=== PATIENT | male | born 1955 | race Caucasian/White ===

== ENCOUNTER 2017-09-19 15:23 | Inpatient (IN) ==
[2017-09-19] MEDS ORDERED: NS 1,000 ML IV ONE (15:36)
[2017-09-19] MEDS ORDERED: DiltiaZEM 25 MG/5 ML INJECTION IVP ONE (15:37)
[2017-09-19] MEDS: SALINE FLUSH 10ml SYRINGE IVF PRN (15:48)
--- NOTE | 2017-09-19 15:59 | Emergency Department Report ---
General Adult HPI - General Chief complaint: Arrhythmia/Palpitations Stated complaint: IRREGULAR HEART RATE Time Seen by Provider: 09/19/17 15:36 Source: patient Mode of arrival: ambulatory Limitations: no limitations - History of Present Illness HPI narrative: Pt is a 62 yo male who presents to ER with his . C/o increasing cough over the past week. Has bad allergies. Seen in critical access hospital care and sent here due to finding of a-fib with RVR. Had episode of CP end of July -felt like a "muscle thing" and "didn't last very long." Gets chest pains off and on and usually thinks it is r/t drinking too much pepsi as he drinks 8+ sodas a day. Has felt more congested in his chest. Has allergies that seem to have flared. No fever. Cough has become productive over the past few days. Currently has no chest pain. Shortness of breath seems to be related to the congestion in his chest. - Related Data Home Medications Medication Instructions Recorded Confirmed Amlodipine Besylate/Benazepril 1 cap PO DAILY 09/19/17 09/19/17 [Amlodipine-Benazepril 5-10 mg] Aspirin [Aspirin EC] 81 mg PO DAILY 09/19/17 09/19/17 Cetirizine HCl [Zyrtec] 10 mg PO DAILY 09/19/17 09/19/17 Montelukast [Singulair] 10 mg PO HS 09/19/17 09/19/17 Thyroid,Pork [Oyster Planter Thyroid] 30 mg PO DAILY 09/19/17 09/19/17 Allergies Allergy/AdvReac Type Severity Reaction Status Date / Time loratadine [From Claritin] Allergy Intermediate Rash Verified 09/19/17 15:55 Review of Systems All systems: reviewed and negative except as stated (coughing, chest congestion) [facility] Patient Stated Medical History Cardiac Arrhythmia Yes: [facility]LLATION [facility] Medical History (Last Updated 09/19/17 @ 14:31 by Hermelinda Jade) HTN (hypertension) (Chronic Medical) Thyroid disease (Chronic Medical) hypothryoidism allergies Surgical History: *None Family History: F-. emphysema, bladder cancer, colostomy M-. HTN, COPD, DM sister-A. fib - Social History Smoking status: Never smoker Substance use type: does not use Alcohol intake frequency: does not drink Social history: Lives in [place] and has a home here as well[place] in [place]. Spends most time in [place]. Physical Exam - Limitations Limitations: no limitations - General General appearance: in no apparent distress - Normal Exams: Head:: Normocephalic without trauma Eyes:: Pupils are PERRLA w/ EOMI Neck:: Full range of motion, without adenopathy Cardiovascular:: capillary refill Abdomen:: soft, non-tender, non-distended Integumentary:: No rashes Neurological:: Patient is alert, and oriented, exams w/o gross deficits Psychiatric:: Patient exhibits, appropriate attention - Respiratory Respiratory exam: Present: wheezes (diffuse- inspiratory and expiratory). Absent: normal lung sounds bilaterally, respiratory distress - Cardiovascular Cardiovascular exam: Present: tachycardia, irregular rhythm Course Vital Signs Temperature 98.9 F 09/19/17 15:25 Pulse Rate 127 H 09/19/17 15:25 Respiratory Rate 19 09/19/17 15:25 Blood Pressure 158/97 H 09/19/17 15:25 Pulse Oximetry 96 09/19/17 15:25 Temperature 98.9 F 09/19/17 15:25 Pulse Rate 98 09/19/17 17:00 Respiratory Rate 16 09/19/17 17:23 Blood Pressure 121/81 09/19/17 17:00 Pulse Oximetry 94 09/19/17 17:23 Medical Decision Making - [facility] Narrative Medical decision making narrative: Patient with new onset of atrial fibrillation, unknown time of onset. Labs and chest x-ray are all essentially normal. Rate was improved with 20 mg Cardizem, but was averaging one teens by end of ER visit. Suspect his wheezing is related to reactive airways related to allergies. Given Solu-Medrol 125 mg IV in the ER and DuoNeb treatment. Case discussed with Alla Huitron APRN with Dr. Hernandez. She will admit for observation with ADRIANA and possible cardioversion tomorrow. Patient admitted to CCU with further orders to be given per cardiology. - Lab Data Result diagrams: 09/19/17 15:39 09/19/17 15:39 Lab Results 09/19/17 09/19/17 Range/Units 15:39 15:39 WBC 4.7 (4.5-11.0) T/MM3 RBC 5.34 (4.50-5.90) M/MM3 Hgb 15.1 (13.5-17.5) GM/DL Hct 43.3 (41-53) % MCV 81.1 (80-100) UM3 MCH 28.3 (26-34) UUG MCHC 34.9 (31-37) GM/DL RDW Std Deviation 37.1 (36.9-50.2) FL Plt Count 233 (130-400) T/MM3 MPV 8.5 L (9.4-12.4) UM3 Immature Gran % (Auto) 0.2 (0.0-0.5) % Neut % (Auto) 36.7 (33-66) % Lymph % (Auto) 35.3 (23-45) % Barber % (Auto) 15.6 H (0-9.0) % Eos % (Auto) 11.6 H (0-4) % Baso % (Auto) 0.6 (0-2) % Neut # (Auto) 1.7 L (1.8-7.7) T/MM3 Lymph # (Auto) 1.7 (1-4.8) T/MM3 Barber # (Auto) 0.7 (0-0.8) T/MM3 Eos # (Auto) 0.6 H (0-0.5) T/MM3 Baso # (Auto) 0.0 (0-0.2) T/MM3 Abs Immat Gran (auto) 0.01 (0.00-0.03) T/MM3 Turbidity < 20 (0-20) Sodium 146 H (134-144) MEQ/L Potassium 3.8 (3.6-5) MEQ/L Chloride 107 (98-107) MEQ/L Carbon Dioxide 24 (22-30) MEQ/L Anion Gap 15 (5-15) meq/L BUN 17.0 (9-20) MG/DL Creatinine 1.0 (0.8-1.5) mg/dL GFR Calculation 75 BUN/Creatinine Ratio 17 (6-26) RATIO Glucose 110 (75-110) MG/DL Calculated Osmolality 284 H (261-280) MOSM/KG Calcium 9.7 (8.4-10.2) MG/DL Total Bilirubin 0.50 (0.20-1.30) MG/DL Icterus Index < 2 (0-7) AST 21 (17-59) U/L ALT 28 (1-50) U/L Alkaline Phosphatase 86 (38-126) U/L Troponin I < 0.012 (0-0.12) ng/ml NT-Pro-B Natriuret Pep 70.7 (0-175) pg/mL Total Protein 8.1 (6.3-8.2) g/dL Albumin 4.6 (3.5-5.0) g/dL Globulin 3.5 (2.4-3.6) G/DL Albumin/Globulin Ratio 1.3 (1.1-2.2) RATIO Specimen Hemolysis < 15 (0-25) Disposition Clinical Impression: Atrial fibrillation with RVR, Wheezing without diagnosis of asthma Disposition: 02 To [facility] Acute Care Condition: Stable Prescriptions: Continue Cetirizine HCl [Zyrtec] 10 mg PO DAILY Thyroid,Pork [Oyster Planter Thyroid] 30 mg PO DAILY Amlodipine Besylate/Benazepril [Amlodipine-Benazepril 5-10 mg] 1 cap PO DAILY Aspirin [Aspirin EC] 81 mg PO DAILY Montelukast [Singulair] 10 mg PO HS Time of Disposition: 17:40 - Seen By: linolevel
--- NOTE | 2017-09-19 16:38 | XRay Report ---
INDICATION: soa PROCEDURE: CHEST 2-VIEWS UPRIGHT (PA & LAT) Encounter: Initial COMPARISON: None FINDINGS: The lungs are clear without evidence of focal abnormal airspace opacity. There is no pleural effusion or pneumothorax. The heart size, mediastinal contours and pulmonary vascularity are within normal limits. Mild degenerative change in the spine. IMPRESSION: No acute cardiopulmonary disease. .
[2017-09-19] MEDS ORDERED: ALBUTEROL/IPRATROPIUM 2.5mg-0.5mg/3ml NEB AEROSOL ONE (17:05)
[2017-09-19] MEDS ORDERED: METHYLPREDNISOLONE SOD SUCC 125mg/2ml INJECTION IVP ONE (17:40)
[2017-09-19] MEDS ORDERED: ENOXAPARIN 100 MG/ML INJECTION SQ ONE (19:00)
[2017-09-19] MEDS: DiltiaZEM Drip 125 MG in NS 125 ML IV SCH (19:05)
[2017-09-19 19:32] VITALS: BMI 34.2
[2017-09-20] MEDS ORDERED: SOTALOL 80 MG TABLET PO SCH (08:00)
[2017-09-20] MEDS ORDERED: APIXABAN 5 MG TABLET PO SCH (10:47)
[2017-09-20] MEDS ORDERED: ASPIRIN *EC* 81 MG TABLET PO SCH (11:00)
[2017-09-20] MEDS: CETIRIZINE 10 MG TABLET PO SCH (12:30)
[2017-09-20] MEDS ORDERED: FLECAINIDE 100 MG TABLET PO ONE (13:36)
[2017-09-20] MEDS: AMLODIPINE/BENAZEPRIL 5mg/10mg CAPSULE PO SCH (13:57)
--- NOTE | 2017-09-20 14:29 | Cardiology History & Physical ---
History of Present Illness Chief complaint: cough HPI: Roby is a 62 year old male with a history of allergies was evaluated in the ED for new onset of atrial fibrillation, unknown time of onset. Rate was improved with 20 mg Cardizem, also given Solu-Medrol 125 mg IV in the ER and DuoNeb treatment. Case was discussed with me and he was admitted to Dr. Hogan for observation and possible cardioversion. He converted while on Cardizem drip in the CCU. Review of Systems - Constitutional Constitutional: Absent: chills, fatigue, fever(s) - EENMT Eyes: Absent: change in vision Balance: Absent: vertigo Mouth/Throat: Absent: sore throat - Cardiovascular Cardiovascular: Absent: chest pain, palpitations, syncope, dyspnea on exertion, orthopnea, edema, heart murmur Rhythm: Absent: abnormal rhythm Vascular: Absent: pedal edema - Respiratory Respiratory: Present: cough, wheezing. Absent: dyspnea on exertion - Gastrointestinal Gastrointestinal: Absent: abdominal pain, constipation, diarrhea, nausea, vomiting - Genitourinary Genitourinary: Absent: dysuria - Integumentary/Breasts Integumentary: Absent: rash - Neurological Neurological: Absent: dizziness - Endocrine Endocrine: Absent: palpitations [facility] Medical History (Last Updated 09/19/17 @ 14:31 by Hermelinda Jade) HTN (hypertension) (Chronic Medical) Thyroid disease (Chronic Medical) Surgical History: *None Family History: Mother - AFib, HTN, COPD, DM Father -. emphysema, bladder cancer, colostomy Sister - AFib - Social History Smoking status: Never smoker Substance use type: does not use Alcohol intake frequency: does not drink Medications Home Medications Medication Instructions Recorded Confirmed Type Amlodipine Besylate/Benazepril 1 cap PO DAILY 09/19/17 09/19/17 History [Amlodipine-Benazepril 5-10 mg] Aspirin [Aspirin EC] 81 mg PO DAILY 09/19/17 09/19/17 History Cetirizine HCl [Zyrtec] 10 mg PO DAILY 09/19/17 09/19/17 History Montelukast [Singulair] 10 mg PO HS 09/19/17 09/19/17 History Thyroid,Pork [Pulp Grinder Thyroid] 30 mg PO DAILY 09/19/17 09/19/17 History Amlodipine/Benazepril 5/10 [Lotrel] 1 cap PO DAILY cap 09/21/17 Rx Aspirin *EC* [Ecotrin] 81 mg PO DAILY tab 09/21/17 Rx Benzonatate [Tessalon Perles] 100 mg PO TID PRN #30 cap 09/21/17 Rx Cetirizine [Zyrtec] 10 mg PO DAILY tab 09/21/17 Rx Flecainide [Tambocor] 50 mg PO BID #60 tab 09/21/17 Rx Guaifenesin LA [Mucinex LA] 1,200 mg PO BID tab 09/21/17 Rx THYROID 30mg [[place] Thyroid] 30 mg PO DAILY tab 09/21/17 Rx Allergies Allergy/AdvReac Type Severity Reaction Status Date / Time loratadine [From Claritin] Allergy Intermediate Rash Verified 09/19/17 15:55 Exam Vital signs: Temperature 98.4 F 09/20/17 04:00 Pulse Rate 68 09/20/17 07:00 Respiratory Rate 26 H 09/20/17 07:00 Blood Pressure 134/81 09/20/17 07:00 Pulse Oximetry 97 09/20/17 07:00 - Constitutional no acute distress, well nourished, cooperative - Routine HEENT Exam Head: Present: normocephalic ENT: Present: mucous membranes moist - Routine Neck Exam Absent: JVD, carotid bruit - Routine Chest/Breast/Axilla Exam Chest wall: Absent: tenderness - Routine Respiratory Exam Present: CTA bilaterally. Absent: dyspnea, rales, wheezes - Routine Cardiovascular Exam Present: RRR, no murmur - Routine Abdominal Exam Present: soft, non tender - Routine Extremities Exam Present: no edema - Routine Skin Exam Present: intact, dry, warm - Routine Neurological Exam Present: alert, oriented X3 - Routine Psychiatric Exam Present: normal affect, normal thought process Results 09/21/17 04:15 09/21/17 04:15 - Imaging and Cardiology Imaging & Cardiology Narrative: Date of Exam: 09/19/17 Ordering Provider: Kay Graves Type of Exam(s): XR chest 2V Reason for Exam(s): soa INDICATION: soa PROCEDURE: CHEST 2-VIEWS UPRIGHT (PA & LAT) Encounter: Initial COMPARISON: None FINDINGS: The lungs are clear without evidence of focal abnormal airspace opacity. There is no pleural effusion or pneumothorax. The heart size, mediastinal contours and pulmonary vascularity are within normal limits. Mild degenerative change in the spine. IMPRESSION: No acute cardiopulmonary disease. 09/20/17 16:36 09/20/17 16:36 Date of Exam: 09/20/17 Type of Exam(s): US echo doppler complete DATE OF PROCEDURE September 20, 2017 This is a two-dimensional echo with spectral Doppler, color-flow and M-mode. It was obtained in a patient with atrial fibrillation. Left atrium is dilated. Left ventricle end-diastolic dimension is normal. Left ventricle wall thickness increased. LV systolic function is normal with ejection fraction of 63%. Right atrium is normal. Right ventricle is normal. Aortic root dimension is normal. Mitral valve annulus is calcified. Mitral valve leaflets are normal with mild mitral regurgitation. Aortic valve shows fibrocalcific changes with no stenosis or insufficiency. Tricuspid valve shows mild tricuspid regurgitation with mild pulmonary hypertension with estimated pulmonary artery systolic pressure of 41. Pulmonary valve shows mild pulmonary insufficiency. There is no pericardial effusion. IMPRESSION 1. Normal LV systolic function with ejection fraction of 63%. 2. Left atrial dilation. 3. Left ventricular hypertrophy. 4. Mitral annulus calcification with mild mitral regurgitation. 5. Aortic sclerosis. 6. Mild tricuspid regurgitation with mild pulmonary hypertension with estimated pulmonary artery systolic pressure of 41. 7. Mild pulmonary insufficiency. EKG interpretations - EKG EKG results cardiology: sinus rhythm - Blocks, axis, hypertrophy, ST abn AV and intraventricular conduction: right bundle branch block (fixed/ intermittent, complete/incomplete) (incomplete) Hospital Course This is a general summary of the patient's hospital course. For more details refer to the complete medical record. Time spent with patient: 25 - 35 minutes Resuscitation Status: Full Code Assessment and Plan - Attestation Attestation Narrative: 10/01/17 13:25 Recommendation After examining the patient I agree with the above assessment. I am involved in the formulation of the patient's plan of care. - Assessment and Plan (1) Atrial fibrillation with RVR Status: Acute New, unknown onset. Patient was not symptomatic, other than cough - denies chest pain - EKG shows A Fib RVR - Started Cardizem drip for rate control. self converted. - Lovenox 1mg/kg SQ given - Check TSH and Mag - Start Flecainide 100mg X1 then 50mg BID for antiarrhythmic therapy - Monitor cardiac telemetry - EKG in [facility] is 1, continue Aspirin 81mg daily - 2D echo (2) Wheezing without diagnosis of asthma Status: Acute Given IV steroid in ED (3) Cough Status: Acute Improved following IV steroid (4) Essential (primary) hypertension Status: Chronic Continue home Amlodipine (5) Hypothyroidism Status: Chronic Continue home thyroid medication, PCP manages - Assessment and Plan AFib: New, unknown onset. Patient was not symptomatic, other than cough - denies chest pain - EKG shows A Fib RVR - Started Cardizem drip for rate control. self converted. - Lovenox 1mg/kg SQ given - Check TSH and Mag - Start Flecainide 100mg X1 then 50mg BID for antiarrhythmic therapy - Monitor cardiac telemetry - EKG in [facility] is 1, continue Aspirin 81mg daily - 2D echo Wheezing /cough: Improved with IV steroid given in ED HTN: continue home Amlodipine Hypothyroid: Continue home thyroid medication, PCP manages
--- NOTE | 2017-09-20 14:58 | Echocardiogram ---
DATE OF PROCEDURE September 20, 2017 This is a two-dimensional echo with spectral Doppler, color-flow and M-mode. It was obtained in a patient with atrial fibrillation. Left atrium is dilated. Left ventricle end-diastolic dimension is normal. Left ventricle wall thickness increased. LV systolic function is normal with ejection fraction of 63%. Right atrium is normal. Right ventricle is normal. Aortic root dimension is normal. Mitral valve annulus is calcified. Mitral valve leaflets are normal with mild mitral regurgitation. Aortic valve shows fibrocalcific changes with no stenosis or insufficiency. Tricuspid valve shows mild tricuspid regurgitation with mild pulmonary hypertension with estimated pulmonary artery systolic pressure of 41. Pulmonary valve shows mild pulmonary insufficiency. There is no pericardial effusion. IMPRESSION 1. Normal LV systolic function with ejection fraction of 63%. 2. Left atrial dilation. 3. Left ventricular hypertrophy. 4. Mitral annulus calcification with mild mitral regurgitation. 5. Aortic sclerosis. 6. Mild tricuspid regurgitation with mild pulmonary hypertension with estimated pulmonary artery systolic pressure of 41. 7. Mild pulmonary insufficiency. MTDD
[2017-09-20] MEDS: DiltiaZEM Drip 125 MG in NS 125 ML IV SCH (19:28)
[2017-09-20] MEDS ORDERED: MONTELUKAST 10 MG TABLET PO SCH (21:00)
[2017-09-20] MEDS: FLECAINIDE 50 MG TABLET PO SCH (21:48)
[2017-09-21] MEDS: AMLODIPINE/BENAZEPRIL 5mg/10mg CAPSULE PO SCH (09:03)
[2017-09-21] MEDS: SALINE FLUSH 10ml SYRINGE IVF PRN (09:05)
[2017-09-21] MEDS: CETIRIZINE 10 MG TABLET PO SCH (10:24)
[2017-09-21] MEDS: FLECAINIDE 50 MG TABLET PO SCH (10:24)
[2017-09-21] MEDS ORDERED: GUAIFENESIN LA 600 MG TABLET PO SCH (10:41)
[2017-09-21] MEDS ORDERED: BENZONATATE 100 MG CAPSULE PO PRN (10:42)
[2017-09-21 15:55] VITALS: BP 137/85; RESP 22; TEMP 96.8; O2SAT 70
--- NOTE | 2017-09-21 16:57 | Discharge Summary ---
<Natividad Chandler - Last Filed: 09/21/17 17:12> Discharge Information Date of admission: 09/20/17 10:59 Anticipated date of discharge: 09/21/17 Attending Physician: Elvin Hogan MD Consults: 09/21/17 05:15 Case Management Consult [Case Management Consult] [CONS] Routine Reason For Exam: overnight oximetry - Discharge Diagnosis (1) Cough Status: Acute (2) Atrial fibrillation with RVR Status: Acute (3) Wheezing without diagnosis of asthma Status: Acute (4) Hypothyroidism Status: Chronic (5) Essential (primary) hypertension Status: Chronic AFib: New, unknown onset. Patient was not symptomatic, other than cough - denies chest pain - EKG shows A Fib RVR - Started Cardizem drip for rate control. self converted. - TSH, Mag, and K+ wnl. - Start Flecainide 100mg X1 then 50mg BID for antiarrhythmic therapy - In SR on DC - ECG: SR, QTc 427 - CHADSvasc is 1, continue Aspirin 81mg daily - echo: EF 63%, LAD, LVH, mild MR, Ao Sc, mild TR, mild PHTN, PAP 40, mild PI. Wheezing /cough: Improved with IV steroid given in ED which caused WBC elevation. Respiratory virus: + RSV - he has had symptoms for 10days. guaifenesin and Tessalon Perles helped. HTN: continue home Amlodipine - well controlled. Hypothyroid: Continue home thyroid medication, PCP manages - Laboratory Labs: Laboratory Last Values WBC 14.6 T/MM3 (4.5-11.0) H D 09/21/17 04:15 RBC 4.58 M/MM3 (4.50-5.90) 09/21/17 04:15 Hgb 13.2 GM/DL (13.5-17.5) L 09/21/17 04:15 Hct 37.9 % (41-53) L 09/21/17 04:15 MCV 82.8 UM3 (80-100) 09/21/17 04:15 MCH 28.8 UUG (26-34) 09/21/17 04:15 MCHC 34.8 GM/DL (31-37) 09/21/17 04:15 RDW Std Deviation 38.2 FL (36.9-50.2) 09/21/17 04:15 Plt Count 231 T/MM3 (130-400) 09/21/17 04:15 MPV 8.9 UM3 (9.4-12.4) L 09/21/17 04:15 Immature Gran % (Auto) 0.2 % (0.0-0.5) 09/20/17 05:03 Neut % (Auto) 77.8 % (33-66) H 09/20/17 05:03 Lymph % (Auto) 19.4 % (23-45) L 09/20/17 05:03 Reeves % (Auto) 2.4 % (0-9.0) 09/20/17 05:03 Eos % (Auto) 0.2 % (0-4) 09/20/17 05:03 Baso % (Auto) 0.0 % (0-2) 09/20/17 05:03 Neut # (Auto) 3.6 T/MM3 (1.8-7.7) 09/20/17 05:03 Lymph # (Auto) 0.9 T/MM3 (1-4.8) L 09/20/17 05:03 Reeves # (Auto) 0.1 T/MM3 (0-0.8) 09/20/17 05:03 Eos # (Auto) 0.0 T/MM3 (0-0.5) 09/20/17 05:03 Baso # (Auto) 0.0 T/MM3 (0-0.2) 09/20/17 05:03 Abs Immat Gran (auto) 0.01 T/MM3 (0.00-0.03) 09/20/17 05:03 Turbidity < 20 (0-20) 09/21/17 04:15 Sodium 142 MEQ/L (134-144) 09/21/17 04:15 Potassium 3.9 MEQ/L (3.6-5) 09/21/17 04:15 Chloride 107 MEQ/L (98-107) 09/21/17 04:15 Carbon Dioxide 26 MEQ/L (22-30) 09/21/17 04:15 Anion Gap 9 meq/L (5-15) 09/21/17 04:15 BUN 30.0 MG/DL (9-20) H 09/21/17 04:15 Creatinine 1.0 mg/dL (0.8-1.5) 09/21/17 04:15 GFR Calculation 75 09/21/17 04:15 BUN/Creatinine Ratio 30 RATIO (6-26) H 09/21/17 04:15 Glucose 107 MG/DL (75-110) 09/21/17 04:15 Calculated Osmolality 279 MOSM/KG (261-280) 09/21/17 04:15 Calcium 8.9 MG/DL (8.4-10.2) 09/21/17 04:15 Magnesium 2.3 MG/DL (1.6-2.3) 09/21/17 04:15 Total Bilirubin 0.50 MG/DL (0.20-1.30) 09/19/17 15:39 Icterus Index < 2 (0-7) 09/21/17 04:15 AST 21 U/L (17-59) 09/19/17 15:39 ALT 28 U/L (1-50) 09/19/17 15:39 Alkaline Phosphatase 86 U/L (38-126) 09/19/17 15:39 Troponin I < 0.012 ng/ml (0-0.12) 09/19/17 15:39 NT-Pro-B Natriuret Pep 70.7 pg/mL (0-175) 09/19/17 15:39 Total Protein 8.1 g/dL (6.3-8.2) 09/19/17 15:39 Albumin 4.6 g/dL (3.5-5.0) 09/19/17 15:39 Globulin 3.5 G/DL (2.4-3.6) 09/19/17 15:39 Albumin/Globulin Ratio 1.3 RATIO (1.1-2.2) 09/19/17 15:39 TSH 1.70 mIU/L (0.47-4.68) 09/19/17 15:39 Specimen Hemolysis < 15 (0-25) 09/21/17 04:15 Adenovirus (PCR) Negative (Negative) 09/21/17 11:35 B.parapertussis DNA PCR Negative (Negative) 09/21/17 11:35 C. pneumoniae DNA (PCR) Negative (Negative) 09/21/17 11:35 Coronavirus OC43 (PCR) Negative (Negative) 09/21/17 11:35 Coronavirus HKU1 (PCR) Negative (Negative) 09/21/17 11:35 Coronavirus 229E (PCR) Negative (Negative) 09/21/17 11:35 Coronavirus NL63 (PCR) Negative (Negative) 09/21/17 11:35 Human Metapneumovir PCR Negative (Negative) 09/21/17 11:35 Influenza Type A (PCR) Negative (Negative) 09/21/17 11:35 Influenza Type B (PCR) Negative (Negative) 09/21/17 11:35 M. pneumoniae (PCR) Negative (Negative) 09/21/17 11:35 Parainfluenza 1 (PCR) Negative (Negative) 09/21/17 11:35 Parainfluenza 2 (PCR) Negative (Negative) 09/21/17 11:35 Parainfluenza 3 (PCR) Negative (Negative) 09/21/17 11:35 Parainfluenza 4 (PCR) Negative (Negative) 09/21/17 11:35 RSV (PCR) Detected (Negative) A* 09/21/17 11:35 Entero/Rhino (PCR) Negative (Negative) 09/21/17 11:35 History of Present Illness HPI: Roby is a 62 year old male with a history of allergies was evaluated in the ED for new onset of atrial fibrillation, unknown time of onset. Rate was improved with 20 mg Cardizem, also given Solu-Medrol 125 mg IV in the ER and DuoNeb treatment. Case was discussed with me and he was admitted to Dr. Hogan for observation and possible cardioversion. He converted while on Cardizem drip in the CCU. Hospital Course He converted overnight on Cardizem gtt. He was started on flecainide and next day's ECG showed acceptable QTc. CHADS VAS 1 and cont on ASA. He had a cough for past 10 days and RVP showed + RSV - supportive care with guaifenesin and Tessalon Perles. He was given a dose of steroids in ER which caused WBC to increase. No fever or chills. VSS. Overnight oximetry showed he had multiple events of sleep apnea form 3:30 to 4:00 am. Recommended sleep study. He lives in [place] and plans to move to [place]. He plans to f/u with Dr. Hogan with stress test and monitoring his A-fib. in the future. On DC he was stable for DC to home with . Time spent with patient: 25 - 35 minutes Resuscitation Status: Full Code Exam Vital signs: Temperature 96.8 F 09/21/17 15:53 Pulse Rate 71 09/21/17 15:53 Respiratory Rate 22 09/21/17 15:53 Blood Pressure 137/85 09/21/17 15:53 Pulse Oximetry 70 L 09/21/17 15:53 - Constitutional no acute distress - Routine HEENT Exam ENT: Present: mucous membranes moist - Routine Neck Exam Present: supple - Routine Respiratory Exam Present: CTA bilaterally - Routine Cardiovascular Exam Present: RRR - Routine Abdominal Exam Present: soft - Routine Extremities Exam Present: no edema - Routine Skin Exam Present: intact, dry, warm - Routine Neurological Exam Present: alert, oriented X3, moving all extremities - Routine Psychiatric Exam Present: normal affect, normal thought process, good insight, good judgment Results 09/21/17 04:15 09/21/17 04:15 09/19/2017 ECG: A-fib, HR 130, IRBBB, QTc 371 09/21/2017 ECG: SR, HR 71, RVCD, QTc 427. - Imaging and Cardiology Imaging & Cardiology Narrative: 09/20/2017 echo IMPRESSION 1. Normal LV systolic function with ejection fraction of 63%. 2. Left atrial dilation. 3. Left ventricular hypertrophy. 4. Mitral annulus calcification with mild mitral regurgitation. 5. Aortic sclerosis. 6. Mild tricuspid regurgitation with mild pulmonary hypertension with estimated pulmonary artery systolic pressure of 41. 7. Mild pulmonary insufficiency. 09/21/17 17:14 09/19/2017 CXR FINDINGS: The lungs are clear without evidence of focal abnormal airspace opacity. There is no pleural effusion or pneumothorax. The heart size, mediastinal contours and pulmonary vascularity are within normal limits. Mild degenerative change in the spine. IMPRESSION: No acute cardiopulmonary disease. 09/21/2017 CXR looks same as 09/19/2017 pending read. Discharge Plan - Med Rec/Dispo Referrals/Follow Up: Elvin Hogan MD [Physician] - [facility] Instructions: A-fib (Atrial Fibrillation) (DC) Additional Instructions: Pt and instructed on A-fib diagnosis and treatment including antiarrhythmic with flecainide, ablaation and anticoagulant with ASA. Prescriptions: New Aspirin *EC* [Ecotrin] 81 mg PO DAILY tab Benzonatate [Tessalon Perles] 100 mg PO TID PRN #30 cap PRN Reason: Cough Cetirizine [Zyrtec] 10 mg PO DAILY tab Guaifenesin LA [Mucinex LA] 1,200 mg PO BID tab THYROID 30mg [Kidder Thyroid] 30 mg PO DAILY tab Amlodipine/Benazepril 5/10 [Lotrel] 1 cap PO DAILY cap Flecainide [Tambocor] 50 mg PO BID #60 tab Continue Cetirizine HCl [Zyrtec] 10 mg PO DAILY Thyroid,Pork [[employer] Thyroid] 30 mg PO DAILY Amlodipine Besylate/Benazepril [Amlodipine-Benazepril 5-10 mg] 1 cap PO DAILY Aspirin [Aspirin EC] 81 mg PO DAILY Montelukast [Singulair] 10 mg PO HS - Disposition 01 Discharged Home, Self-Care - Dismissal Complete Discharge Instructions are:: Complete <Elvin Hogan - Last Filed: 09/26/17 14:10> Discharge Information Date of admission: 09/20/17 10:59 Attending Physician: Elvin Hogan MD Consults: 09/21/17 05:15 Case Management Consult [Case Management Consult] [CONS] Routine Reason For Exam: overnight oximetry - Discharge Diagnosis (1) Cough Status: Acute (2) Atrial fibrillation with RVR Status: Acute (3) Wheezing without diagnosis of asthma Status: Acute (4) Hypothyroidism Status: Chronic (5) Essential (primary) hypertension Status: Chronic - Laboratory Labs: 09/21/17 04:15 09/21/17 04:15 Hospital Course This is a general summary of the patient's hospital course. For more details refer to the complete medical record. Exam Vital signs: Temperature 96.8 F 09/21/17 15:53 Pulse Rate 70 09/21/17 16:00 Respiratory Rate 22 09/21/17 15:53 Blood Pressure 137/85 09/21/17 15:53 Pulse Oximetry 70 L 09/21/17 15:53 Results 09/21/17 04:15 09/21/17 04:15 Attestation Narriative - Attestation Attestation Narrative: 09/26/17 14:10 Recommendation After examining the patient I agree with the above assessment. I am involved in the formulation of the patient's plan of care. Addendum entered and electronically signed by Natividad Chandler APRN 09/21/17 17:19: Add to Diagnosis: sleep apnea - recommend f/u with PCP for sleep study. He feels well to go home. Coughing improved.
[2017-09-21 19:44] VITALS: PULSE 70
[2017-09-22] MEDS ORDERED: ASPIRIN *EC* 81 MG TABLET PO SCH (09:00)
--- NOTE | 2017-09-22 10:53 | XRay Report ---
INDICATION: productive cough PROCEDURE: CHEST 2-VIEWS UPRIGHT (PA & LAT) Encounter: Initial COMPARISON: September 19, 2017 FINDINGS: The lungs are clear without evidence of focal abnormal airspace opacity. There is no pleural effusion or pneumothorax. The heart size, mediastinal contours and pulmonary vascularity are within normal limits. There is no significant skeletal abnormality. IMPRESSION: No acute cardiopulmonary disease. .
== END 2017-09-21 18:45 | disposition home or self-care (01) | DRG 310 ==
LOC: CCU 15:23 → ED 15:23 → MED 09-20 15:37
PROVIDERS: ADMIT Internal Medicine Cardiovascular Disease; ATTEND Internal Medicine Cardiovascular Disease